=== PATIENT | female | born 1965 | race Caucasian/White ===

== ENCOUNTER 2018-12-26 17:01 | Emergency (ER) | payer OTHER, SELFPAY ==
[2018-12-26 17:05] VITALS: BP 112/76; PULSE 79; RESP 16; TEMP 36.8; O2SAT 97
--- NOTE | 2018-12-26 17:43 | NUR.NOTE ---
Nursing Note: Ring removed from patients L ring finger and gave directly to
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
--- NOTE | 2018-12-26 17:54 | NUR.NOTE ---
Nursing Note: injury noted to right middle finger and soft tissue injury to left hand.
[2018-12-26] MEDS: Acetaminophen 325 MG TAB 650 MG PO (17:55)
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
--- NOTE | 2018-12-26 19:06 | DI.VRAD_ITS ---
EXAM: XR Right Finger(s) EXAM DATE/TIME: 12/26/2018 5:48 PM CLINICAL HISTORY: 53 years old, female; Pain; Finger(s); Right; Additional info: Mallet deformity, injury TECHNIQUE: Imaging protocol: XR Right fingers. Views: Minimum 2 views. COMPARISON: No relevant prior studies available. FINDINGS: Tubes, catheters and devices: Mild swan-neck deformity noted on the lateral view. In the setting of acute trauma, this is concerning for injury to the extensor mechanism of the level of the DIP joint. No bony avulsion is evident. Bones/joints: No fracture or dislocation. Soft tissues: No local soft tissue swelling is evident. No foreign body. The remainder of the visualized hand is unremarkable. IMPRESSION: 1. No fracture or dislocation. 2. Mild swan-neck deformity of the right finger on the lateral view is concerning for a mallet finger type injury in the setting of acute trauma, suggesting possible injury to the dorsal extensor mechanism at the PIP joint. No bony avulsion. Dictated and Authenticated by: Venu Thompson MD. Ordering:POPPY Newell MD
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
[2018-12-26 19:42] VITALS: BP 112/76; PULSE 74; RESP 16; O2SAT 99
== END 2018-12-26 19:45 | disposition home or self-care (01) ==
PROVIDERS: Emergency Provider Student in an Organized Health Care Education/Training Program; PCP Family Medicine
DX: M20.012 Mallet finger of left finger(s) (principal); S20.212A Contusion of left front wall of thorax, initial encounter; S60.222A Contusion of left hand, initial encounter; V17.0XXA Pedal cycle driver injured in collision with fixed or stationary object in nontraffic accident, initial encounter
CPT/HCPCS: 99284; 71046; 73130; 73140; 99282